=== PATIENT | female | born 1995 | race Caucasian/White ===

== ENCOUNTER 2016-09-03 16:35 | Emergency (ER) | payer OTHER | END 2016-09-03 17:40 | disposition home or self-care (01) | LOC: ER1 16:35 | DX: S61.230A Puncture wound without foreign body of right index finger without damage to nail, initial encounter (principal); W46.0XXA Contact with hypodermic needle, initial encounter; Y93.89 Activity, other specified | CPT/HCPCS: 80074; 86706; 87390; 99282 ==

== ENCOUNTER → 2016-10-13 | Outpatient (CLI) | payer OTHER | LOC: LAB 13:59 | DX: Z02.1 Encounter for pre-employment examination (principal) | CPT/HCPCS: 86706 ==